=== PATIENT | female | born 1995 ===

== ENCOUNTER 2024-03-30 10:08 | Outpatient (CLI) | payer OTHER | END 2024-03-30 10:09 | disposition home or self-care (01) | LOC: PRENATAL 10:08 | PROVIDERS: ATTEND Obstetrics & Gynecology Maternal & Fetal Medicine | DX: O26.849 Uterine size-date discrepancy, unspecified trimester (principal); O36.8199 Decreased fetal movements, unspecified trimester, other fetus; O99.019 Anemia complicating pregnancy, unspecified trimester; Z3A.32 32 weeks gestation of pregnancy ==